=== PATIENT | male | born 1980 | race Caucasian/White ===

== ENCOUNTER 2017-09-27 18:04 | Emergency (ER) | payer OTHER ==
[~2017-09-27] VITALS: Ht 182.9 cm; Wt 81.8 kg
[~2017-09-27 18:04] MED LIST: DARV100T; NICO21DI4; No Historical Meds
[2017-09-27 19:21] LABS: BASO # 0.1 10^3/uL (0.0-0.2); BASO % 1.1 % (0.0-1.0); EOS # 0.1 10^3/uL (0.0-0.50); EOS % 1.3 % (0.0-3.0); IMMATURE GRANULOCYTE % 0.7 % (0-0); LYMPH # 2.3 10^3/uL (1.5-4.5); LYMPH % 21.5 % (24.0-44.0); MEAN CORPUSCULAR HEMOGLOBIN 29.7 pg (27.0-33.0); MEAN CORPUSCULAR HGB CONC 33.8 g/dl (32.0-36.5); MEAN CORPUSCULAR VOLUME 87.9 fl (80.0-96.0); MONO # 0.9 10^3/uL (0.0-0.8); MONO % 8.8 % (0.0-5.0); NEUTROPHILS # 7.1 10^3/uL (1.8-7.7); NEUTROPHILS % 66.6 % (36.0-66.0); PLATELET COUNT, AUTOMATED 311 10^3/uL (150-450); RED CELL DISTRIBUTION WIDTH 12.6 % (11.5-14.5); WHITE BLOOD COUNT 10.6 10^3/uL (4.0-10.0)
[2017-09-27 19:46] LABS: ALBUMIN 4.2 GM/DL (3.2-5.2); ALBUMIN/GLOBULIN RATIO 1.31 (1.00-1.93); ALKALINE PHOSPHATASE 97 U/L (45-117); ALT/SGPT 35 U/L (12-78); ANION GAP 6 MEQ/L (8-16); AST/SGOT 16 U/L (7-37); BILIRUBIN,DIRECT 0.1 MG/DL (0.0-0.2); BILIRUBIN,TOTAL 0.4 MG/DL (0.2-1.0); BLOOD UREA NITROGEN 11 MG/DL (7-18); CALCIUM LEVEL 9.9 MG/DL (8.5-10.1); CARBON DIOXIDE LEVEL 31 MEQ/L (21-32); CHLORIDE LEVEL 102 MEQ/L (98-107); CREATININE FOR GFR 1.43 MG/DL (0.70-1.30); GLOMERULAR FILTRATION RATE 59.2 (>60); GLUCOSE, FASTING 113 MG/DL (70-105); POTASSIUM SERUM 4.6 MEQ/L (3.5-5.1); SODIUM LEVEL 139 MEQ/L (136-145); TOTAL PROTEIN 7.4 GM/DL (6.4-8.2)
[2017-09-27 19:51] LABS: FREE T4 1.07 NG/DL (0.76-1.46)
[2017-09-27 20:02] LABS: ERYTHROCYTE SEDIMENTATION RATE 3 mm/hr (0-15)
[2017-09-27 20:48] VITALS: BP 134/83
--- NOTE | 2017-09-28 07:29 | REP ---
CHEST X-RAY: Two views. HISTORY: Chest pain. COMPARISON STUDY: January 03, 2016. FINDINGS: There is a linear density in the right apex with adjacent apical pleural thickening consistent with postoperative change. This is unchanged. The lungs are otherwise well inflated and clear. The pleural angles are sharp. Heart size is normal. No significant bony abnormality is seen. IMPRESSION: No active disease. Signed by Shawn Lee MD 09/28/2017 09:20 A
--- NOTE | 2017-09-28 17:50 | ECGEPIP ---
Stationary ECG Study [facility] - ED Test Date: 2017-09-27 Pat Name: CALEB ALVAREZ Department: Room: - Gender: M Electrical Repairer: ct : 1980 Requested By: Perla Flores Order Number: [id number] Reading MD: Geovani Manuel Measurements Intervals [place] Rate: 90 P: 70 CT: 152 QRS: 94 QRSD: 87 T: 38 QT: 328 QTc: 402 Interpretive Statements SINUS RHYTHM WITH SINUS ARRHYTHMIA BORDERLINE RIGHT AXIS DEVIATION Electronically Signed On 09-28-2017 17:49:53 EDT by Geovani Manuel
== END 2017-09-27 21:39 | disposition home or self-care (01) ==
LOC: M ED 18:04
DX: R07.0 Pain in throat (principal); Z72.0 Tobacco use

== ENCOUNTER → 2017-10-08 | Outpatient (CLI) | payer OTHER ==
[2017-10-08 16:34] LABS: ANION GAP 3 MEQ/L (8-16); BLOOD UREA NITROGEN 11 MG/DL (7-18); CALCIUM LEVEL 9.7 MG/DL (8.5-10.1); CARBON DIOXIDE LEVEL 31 MEQ/L (21-32); CHLORIDE LEVEL 105 MEQ/L (98-107); CREATININE FOR GFR 1.08 MG/DL (0.70-1.30); GLOMERULAR FILTRATION RATE > 60.0 (>60); GLUCOSE, FASTING 108 MG/DL (70-105); POTASSIUM SERUM 4.3 MEQ/L (3.5-5.1); SODIUM LEVEL 139 MEQ/L (136-145)
== END ==
LOC: M LAB 15:43
PROVIDERS: ATTEND Neuromusculoskeletal Medicine & OMM
DX: N17.9 Acute kidney failure, unspecified (principal)

== ENCOUNTER 2020-06-08 08:56 | Emergency (ER) | payer OTHER ==
[~2020-06-08] VITALS: Ht 182.9 cm; Wt 80.7 kg
[2020-06-08] MEDS ORDERED: OMEP40CA97 PO (09:02)
[2020-06-08] MEDS ORDERED: ACET-840 PO (09:02)
[2020-06-08] MEDS ORDERED: NS 1,000 ML IV ONE (09:30)
[2020-06-08 09:56] LABS: BASO # 0.1 10^3/uL (0.0-0.2); BASO % 0.7 % (0.0-1.0); EOS # 0.1 10^3/uL (0.0-0.5); EOS % 0.4 % (0.0-3.0); HEMATOCRIT 50.7 % (42.0-52.0); HEMOGLOBIN 17.3 g/dl (13.5-17.5); LYMPH # 1.6 10^3/uL (1.5-5.0); LYMPH % 14.3 % (24.0-44.0); MEAN CORPUSCULAR HEMOGLOBIN 29.3 pg (27.0-33.0); MEAN CORPUSCULAR HGB CONC 34.1 g/dl (32.0-36.5); MEAN CORPUSCULAR VOLUME 85.9 fl (80.0-96.0); MONO # 0.7 10^3/uL (0.0-0.8); MONO % 5.9 % (0.0-5.0); NEUTROPHILS # 8.9 10^3/uL (1.5-8.5); NEUTROPHILS % 78.1 % (36.0-66.0); PLATELET COUNT, AUTOMATED 299 10^3/uL (150-450); WHITE BLOOD COUNT 11.4 10^3/uL (4.0-10.0)
[2020-06-08] MEDS ORDERED: KETOROLAC 30 MG/ML 1ML VIAL IV ONE (10:00)
[2020-06-08 10:39] LABS: ALBUMIN 4.6 GM/DL (3.2-5.2); ALT/SGPT 28 U/L (12-78); AMYLASE 33 U/L (25-115); BILIRUBIN,DIRECT < 0.1 MG/DL (0.0-0.2); BILIRUBIN,TOTAL 1.1 MG/DL (0.2-1.0); CK-MB VALUE MASS < 1.0 NG/ML (<3.6); CPK CREATINE PHOSPHOKINASE 108 U/L (39-308); LIPASE 111 U/L (73-393); MB/CK RELATIVE INDEX 0.93 (< OR =4); TOTAL PROTEIN 8.3 GM/DL (6.4-8.2); TROPONIN I < 0.02 NG/ML (< 0.10)
[2020-06-08] MEDS ORDERED: ISOVUE-370 76% 100ML VIAL As Ordered ONE (10:46)
[2020-06-08] MEDS ORDERED: CIPROFLOXACIN 500MG TABLET PO ONE (11:45)
[2020-06-08] MEDS ORDERED: metroNIDAZOLE (FLAGYL) 500 MG TAB PO ONE (11:45)
--- NOTE | 2020-06-08 12:07 | REP ---
CT ABDOMEN AND PELVIS WITH IV CONTRAST: TECHNIQUE: Axial contrast-enhanced images from the lung bases to the pubic symphysis using 100 mL Isovue-370 intravenous contrast material with multiplanar reformations. Visualized lung bases demonstrate mild pleural thickening posteriorly on the right. The liver and gallbladder are unremarkable. Spleen is normal in size. Adrenal glands demonstrate no nodule. No pancreatic mass is seen. There are a couple of tiny cysts in the right kidney. There is no hydronephrosis. There is no abdominal aortic aneurysm with mild atherosclerotic calcification. There is no adenopathy, free air or free fluid. There appears to be diffuse thickening of the left colon compatible with colitis. The appendix is normal. No pelvic mass is seen. The urinary bladder is not well distended and not well evaluated. IMPRESSION: There appears to be diffuse thickening of the left colon compatible with colitis. No free air or free fluid. Normal appendix. Electronically Signed by Misael Beltran MD 06/10/2020 11:08 P
[2020-06-08] MEDS ORDERED: CIPR-249 PO (12:15)
[2020-06-08] MEDS ORDERED: FLAG500T PO (12:15)
[2020-06-08 12:38] VITALS: BP 132/77
--- NOTE | 2020-06-08 21:33 | ECGEPIP ---
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
== END 2020-06-08 12:38 | disposition home or self-care (01) ==
LOC: M ED 08:56
DX: K51.90 Ulcerative colitis, unspecified, without complications (principal); R00.0 Tachycardia, unspecified; K21.9 Gastro-esophageal reflux disease without esophagitis; J43.9 Emphysema, unspecified; Z72.0 Tobacco use; F12.10 Cannabis abuse, uncomplicated; Z88.0 Allergy status to penicillin
CPT/HCPCS: 74177; 80047; 80076; 82150; 82550; 82553; 83690; 85025; 93005; 96361; 96374; 99284; J1885; Q9967

== ENCOUNTER → 2020-06-18 | Outpatient (CLI) | payer OTHER ==
[~2020-06-18] MED LIST changes: +ACET-840 PO; +CIPR-249 PO; +FLAG500T PO; +OMEP40CA97 PO
[2020-06-18 16:42] LABS: HEMATOCRIT 50.1 % (42.0-52.0); MEAN CORPUSCULAR HEMOGLOBIN 29.3 pg (27.0-33.0); MEAN CORPUSCULAR HGB CONC 33.9 g/dl (32.0-36.5); MEAN CORPUSCULAR VOLUME 86.4 fl (80.0-96.0); PLATELET COUNT, AUTOMATED 275 10^3/uL (150-450); WHITE BLOOD COUNT 8.1 10^3/uL (4.0-10.0)
[2020-06-18 17:16] LABS: ALBUMIN 4.3 GM/DL (3.2-5.2); ALT/SGPT 46 U/L (12-78); BILIRUBIN,TOTAL 0.8 MG/DL (0.2-1.0); BLOOD UREA NITROGEN 16 MG/DL (7-18); CALCIUM LEVEL 9.5 MG/DL (8.5-10.1); CARBON DIOXIDE LEVEL 27 MEQ/L (21-32); CHLORIDE LEVEL 104 MEQ/L (98-107); CREATININE FOR GFR 1.21 MG/DL (0.70-1.30); FREE T4 1.28 NG/DL (0.76-1.46); GLOMERULAR FILTRATION RATE > 60.0 (>60); GLUCOSE, FASTING 91 MG/DL (70-100); POTASSIUM SERUM 4.5 MEQ/L (3.5-5.1); SODIUM LEVEL 139 MEQ/L (136-145); TOTAL PROTEIN 7.8 GM/DL (6.4-8.2)
[2020-06-20 20:07] LABS: UNITSIGA FOR GLIADIN IGA 5 units (0-19); UNITSIGG FOR GLIADIN IGG 3 units (0-19)
== END ==
LOC: M LAB 15:31
PROVIDERS: ATTEND Hospitalist
DX: R19.7 Diarrhea, unspecified (principal)

== ENCOUNTER → 2022-05-02 | Outpatient (CLI) | payer OTHER ==
[~2022-05-02] MED LIST changes: +OMEP40CA4 PO; -OMEP40CA97 PO
[2022-05-02 16:17] LABS: HEMATOCRIT 48.7 % (42.0-52.0); HEMOGLOBIN 15.9 g/dl (13.5-17.5); MEAN CORPUSCULAR HEMOGLOBIN 29.7 pg (27.0-33.0); MEAN CORPUSCULAR HGB CONC 32.6 g/dl (32.0-36.5); MEAN CORPUSCULAR VOLUME 90.9 fl (80.0-96.0); PLATELET COUNT, AUTOMATED 286 10^3/uL (150-450); RED BLOOD COUNT 5.36 10^6/uL (4.30-6.10); WHITE BLOOD COUNT 8.5 10^3/uL (4.0-10.0)
[2022-05-02 16:43] LABS: BLOOD UREA NITROGEN 14 MG/DL (7-18); CALCIUM LEVEL 9.2 MG/DL (8.5-10.1); CARBON DIOXIDE LEVEL 26 MEQ/L (21-32); CHLORIDE LEVEL 109 MEQ/L (98-107); CREATININE FOR GFR 1.07 MG/DL (0.70-1.30); GLOMERULAR FILTRATION RATE > 60.0 (>60); GLUCOSE, FASTING 111 MG/DL (70-100); POTASSIUM SERUM 4.3 MEQ/L (3.5-5.1); SODIUM LEVEL 142 MEQ/L (136-145); THYROID PEROXIDASE ANTIBODY > 1300.0 U/ML (<60.0)
[2022-05-02 17:31] LABS: MALB URINE SIEMENS 22.1 MG/L; MAU/CREAT RATIO 5.7 MCG/MG (0.0-30.0)
[2022-05-02 19:43] LABS: HEMOGLOBIN A1c 5.1 %
== END ==
LOC: M PLALAB 13:35
PROVIDERS: ATTEND Student in an Organized Health Care Education/Training Program
DX: Z00.00 Encounter for general adult medical examination without abnormal findings (principal); Z13.1 Encounter for screening for diabetes mellitus; Z13.29 Encounter for screening for other suspected endocrine disorder

== ENCOUNTER → 2022-05-16 | Outpatient (REF) | payer OTHER | LOC: M SFHCPLAZ 10:30 | PROVIDERS: ATTEND Family Medicine | DX: E03.8 Other specified hypothyroidism (principal); Z53.9 Procedure and treatment not carried out, unspecified reason ==

== ENCOUNTER → 2022-05-19 | Outpatient (CLI) | payer OTHER ==
[2022-05-19 16:37] LABS: FREE T4 1.14 NG/DL (0.76-1.46)
[2022-05-19 16:45] LABS: HEPATITIS B SURFACE ANTIBODY NEGATIVE (POSITIVE); THYROGLOBULIN ANTIBODY < 15.0 U/ML (<60.0)
[2022-05-19 17:24] LABS: HIV 1&2 SCREEN CENTAUR NEGATIVE (NEGATIVE)
== END ==
LOC: M PLALAB 14:19
PROVIDERS: ATTEND Student in an Organized Health Care Education/Training Program
DX: Z02.1 Encounter for pre-employment examination (principal); E03.8 Other specified hypothyroidism

== ENCOUNTER → 2025-03-14 | Outpatient (CLI) | payer OTHER ==
[2025-03-14 17:17] LABS: BASO # 0.1 10^3/uL (0.0-0.2); BASO % 1.1 % (0.0-1.0); EOS # 0.1 10^3/uL (0.0-0.5); EOS % 1.1 % (0.0-3.0); HEMATOCRIT 49.8 % (42.0-52.0); HEMOGLOBIN 16.6 g/dl (13.5-17.5); LYMPH # 2.4 10^3/uL (1.5-5.0); MEAN CORPUSCULAR HEMOGLOBIN 29.1 pg (27.0-33.0); MEAN CORPUSCULAR HGB CONC 33.3 g/dl (32.0-36.5); MEAN CORPUSCULAR VOLUME 87.2 fl (80.0-96.0); MONO % 9.2 % (2.0-8.0); NEUTROPHILS # 6.8 10^3/uL (1.5-8.5); NEUTROPHILS % 64.9 % (36.0-66.0); PLATELET COUNT, AUTOMATED 313 10^3/uL (150-450); RED BLOOD COUNT 5.71 10^6/uL (4.30-6.10); WHITE BLOOD COUNT 10.5 10^3/uL (4.0-10.0)
[2025-03-14 17:35] LABS: HEMOGLOBIN A1c 5.2 % (4.0-6.0)
[2025-03-14 17:50] LABS: ALBUMIN 4.9 G/DL (3.2-5.2); ALKALINE PHOSPHATASE 86 U/L (40-129); ALT/SGPT 22 U/L (7.0-40); AST/SGOT 11 U/L (<34); BILIRUBIN,TOTAL 0.8 MG/DL (0.3-1.2); BLOOD UREA NITROGEN 13 MG/DL (9-23); CALCIUM LEVEL 9.6 MG/DL (8.5-10.1); CARBON DIOXIDE LEVEL 26 MMOL/L (20-31); CHLORIDE LEVEL 103 MMOL/L (98-107); CHOLESTEROL LEVEL 162 MG/DL (<200); CHOLESTEROL RISK RATIO 3.93 (<5); CREATININE FOR GFR 0.99 MG/DL (0.70-1.30); GLOMERULAR FILTRATION RATE > 90.0 (>60); GLUCOSE, FASTING 138 MG/DL (60-100); HDL CHOLESTEROL 41.2 MG/DL (>40); LDL CHOLESTEROL 97.8 MG/DL (<100); NON-HDL-C 120.8 MG/DL; POTASSIUM SERUM 4.7 MMOL/L (3.5-5.1); SODIUM LEVEL 139 MMOL/L (136-145); TOTAL PROTEIN 7.5 G/DL (5.7-8.2); TRIGLYCERIDES LEVEL 115 MG/DL (<150)
== END ==
LOC: M PLALAB 15:17
PROVIDERS: ATTEND Student in an Organized Health Care Education/Training Program
DX: Z00.00 Encounter for general adult medical examination without abnormal findings (principal); Z13.1 Encounter for screening for diabetes mellitus; Z13.220 Encounter for screening for lipoid disorders

== ENCOUNTER → 2025-03-15 | Outpatient (CLI) | payer OTHER ==
[2025-03-17 12:17] LABS: QuantiFERON-TB Gold Plus NEGATIVE (NEGATIVE)
[2025-03-17 14:07] LABS: RUBEOLA IgG ANTIBODY > 300.00 AU/mL (>16.49)
== END ==
LOC: M PLALAB 09:16
PROVIDERS: ATTEND Student in an Organized Health Care Education/Training Program
DX: Z71.85 Encounter for immunization safety counseling (principal); Z11.1 Encounter for screening for respiratory tuberculosis